=== PATIENT | male | born 1960 | race Two or more races ===

== ENCOUNTER → 2022-02-21 | Emergency (ER) | payer OTHER ==
[~2022-02-21] VITALS: Ht 180.3 cm; Wt 117.9 kg
[~2022-02-21] MED LIST: CEFADROXIL500 MG PO; NABUMETONE750 MG PO
== END | disposition home or self-care (01) ==
LOC: ER 22:34
DX: S02.2XXA Fracture of nasal bones, initial encounter for closed fracture (principal); W18.30XA Fall on same level, unspecified, initial encounter; Y93.89 Activity, other specified; Y92.89 Other specified places as the place of occurrence of the external cause; Y99.8 Other external cause status; R55 Syncope and collapse; E11.9 Type 2 diabetes mellitus without complications; I10 Essential (primary) hypertension